=== PATIENT | male | born 1945 | race Caucasian/White ===

== ENCOUNTER → 2017-06-03 | Outpatient (CLI) | payer MEDICARE, OTHER ==
[~2017-06-03] MED LIST: A & D OINT TUBE60 GM TP; ALLEGRA 180MG180 MG PO; ASPIRIN 81M81 MG/TA2 PO; BRILINTA90 MG PO; CLARITIN 1010 MG/TAB PO; COLACE 100100 MG/CAP PO; ENSURE PLUS 23237 ML PO; GLUCOPHAGE500 MG/TAB PO; MAG-OX 400400 MG/TAB PO; MIRALAX PA17 GM/Dose PO; NAMENDA 10MG TA10 MG PO; NORVASC 5MG5 MG/TAB PO; Norvasc PO; PRAVACHOL 20MG20 MG PO; PRAVACHOL10 MG PO; SEROQUEL 1100 MG/TAB PO; SINGULAIR 110 MG/TAB PO; SYNTHROID0.125 MG/T PO; TOPROL XL 25MG25 MG PO; VALIUM 5MG T5 MG/TAB PO; ZESTRIL 20MG TA20 MG PO; ZESTRIL40 MG PO; [UNRECOGNIZED DRUG - SUPPLY] TP
== END ==
LOC: COL.RAD 07:12
DX: Z13.6 Encounter for screening for cardiovascular disorders (principal); I71.4 Abdominal aortic aneurysm, without rupture

== ENCOUNTER → 2022-04-26 | Outpatient (RCR) | payer MEDICARE, OTHER ==
[~2022-04-26] MED LIST changes: +PRINIVIL10 MG PO; +SORIATANE25 M2 PO; +SYNTHROID0.1 MG/TAB PO
== END | disposition still patient (30) ==
LOC: WSST
DX: R48.9 Unspecified symbolic dysfunctions (principal); R41.3 Other amnesia; G93.1 Anoxic brain damage, not elsewhere classified

== ENCOUNTER → 2022-07-27 | Outpatient (RCR) | payer MEDICARE, OTHER | END | disposition home or self-care (01) | LOC: WSST | DX: R48.9 Unspecified symbolic dysfunctions (principal); R41.3 Other amnesia; G93.1 Anoxic brain damage, not elsewhere classified; Z86.74 Personal history of sudden cardiac arrest ==

== ENCOUNTER → 2022-08-24 | Outpatient (CLI) | payer MEDICARE, OTHER | LOC: COL.RAD 08-12 07:30 | DX: K76.0 Fatty (change of) liver, not elsewhere classified (principal) ==

== ENCOUNTER → 2022-08-24 | Outpatient (RCR) | payer MEDICARE, OTHER | END | disposition home or self-care (01) | LOC: WSST | DX: R48.9 Unspecified symbolic dysfunctions (principal); R41.3 Other amnesia ==

== ENCOUNTER 2022-09-21 13:30 | Outpatient (RCR) | payer MEDICARE, OTHER | END 2022-09-24 | disposition home or self-care (01) | LOC: WSST | DX: G93.1 Anoxic brain damage, not elsewhere classified (principal); R48.9 Unspecified symbolic dysfunctions; R41.3 Other amnesia ==

== ENCOUNTER 2022-10-19 13:30 | Outpatient (RCR) | payer MEDICARE, OTHER | END 2022-10-24 | disposition home or self-care (01) | LOC: WSST | DX: G93.1 Anoxic brain damage, not elsewhere classified (principal) ==

== ENCOUNTER 2022-11-23 13:30 | Outpatient (RCR) | payer MEDICARE, OTHER | END 2022-11-24 | disposition home or self-care (01) | LOC: WSST | DX: R48.9 Unspecified symbolic dysfunctions (principal); R41.3 Other amnesia ==

== ENCOUNTER 2023-10-24 14:35 | Inpatient (IN) | payer MEDICARE, OTHER ==
[~2023-10-24] VITALS: Ht 162.6 cm; Wt 87.1 kg
[2023-10-24] VITALS (250 sets, daily range): BP systolic 121–131; BP diastolic 69–79; PULSE 89–113; TEMP 98.6; O2SAT 86–98
[~2023-10-24 14:35] MED LIST changes: +ALBUTEROL0.83 MG/ML IH; +ALDACTONE 25MG25 M1 PO; +COZAAR 25MG25 MG/TAB PO; +LASIX 40MG TABL40 MG PO; +OXYGEN NASAL.CANN; +PLAVIX 75MG TAB75 MG PO; +PRESERVISION A1 EAC3 PO; +SYNTHROID0.112 MG/T PO
[2023-10-24] MEDS ORDERED: NS 1,000 ML IV ONE (15:30)
[2023-10-24] MEDS ORDERED: dilTIAZem 25 MG/5 ML VIAL IV ONE (15:30)
[2023-10-24 15:33] LABS: BASO % 0.2 % (0.0-2.0); EOS # 0.2 K/mm3 (0.0-0.7); EOS % 1.3 % (0.0-4.0); GRAN # 11.6 K/mm3 (1.4-6.5); GRAN % 81.9 % (42.2-75.2); HEMATOCRIT 38.9 % (42.0-52.0); HEMOGLOBIN 12.5 g/dl (13.5-18.0); LYMPH % 7.1 % (20.0-51.0); MEAN CELL VOLUME 91 fl (80.0-100.0); MEAN CORPUSCULAR HEMOGLOBIN 29 pg (27-31); MEAN CORPUSCULAR HGB CONC 32 g/dl (33.0-37.0); MEAN PLATELET VOLUME 11.3 fl (7.4-10.4); MONO # 1.2 K/mm3 (0.1-0.6); MONO % 8.6 % (1.7-9.3); PLATELET COUNT 206 K/mm3 (130-400); RED BLOOD COUNT 4.27 M/mm3 (4.20-5.60); REDCELL DISTRIBUTION WIDTH-CV 15.4 % (11.5-14.5)
[2023-10-24 15:44] LABS: INR 1.3 (0.8-3.0); PROTHROMBIN TIME 14.4 SECONDS (9.7-12.8)
[2023-10-24 15:47] LABS: PARTIAL THROMBOPLASTIN TIME 30.2 SECONDS (26.0-37.0)
[2023-10-24 15:58] LABS: ALBUMIN 2.7 g/dL (3.4-4.8); BILIRUBIN,TOTAL 0.7 mg/dL (0.2-1.2); CALCIUM 8.9 mg/dL (8.4-10.2); CREATININE, serum 0.78 mg/dL (0.72-1.25); MAGNESIUM 2.2 mg/dL (1.6-2.6); POTASSIUM 4.1 mEq/L (3.5-4.5); TOTAL PROTEIN 7.6 g/dl (6.2-8.1)
[2023-10-24] MEDS ORDERED: Digoxin 0.25 MG/ML 2 ML VIAL IV ONE (16:00)
[2023-10-24 16:06] LABS: TROPONIN-I 0.028 ng/mL (0.00-0.033)
[2023-10-24] MEDS ORDERED: Heparin 5,000 UNITS/ML 1 ML VIAL IV PRN (16:30)
[2023-10-24] MEDS ORDERED: Heparin/D5W 250 ML IV SCH (16:30)
[2023-10-24] MEDS ORDERED: Heparin 5,000 UNITS/ML 1 ML VIAL IV ONE (16:30)
[2023-10-24] MEDS ORDERED: MAG-OX 400400 MG/TAB PO (16:51)
[2023-10-24] MEDS ORDERED: *Potassium Replacement Protocol MC SCH (19:15)
--- NOTE | 2023-10-24 20:00 | NUR ---
AT BEDSIDE. PT IS ALERT, BUT FORGETFUL. PER THIS IS HIS BASELINE. PT ARRIVED PRIOR TO 1900. NO SIGN OF DISTRESS AT THIS TIME.
--- NOTE | 2023-10-24 20:53 | NUR ---
PT ARRIVED ON DAYSHIFT AT THE END OF THE SHIFT. ADDMISSION COMPLETED ON ASSOCIATE BUYER. PT IS STABLE. NO SIGN OF DISTRESS AT THIS TIME. AT BEDSIDE.
--- NOTE | 2023-10-24 22:00 | NUR ---
PT HAS URINARY FREQUENCY AND URGENCY. WILL SEND UA. PT'S HAS GONE HOME. PT IS IMPULSIVE. BED ALARM IN USE. PT INSTRUCTED ON USE OF NURSE CALL.
[2023-10-24 22:21] LABS: HEMOGLOBIN 12.6 g/dl (13.5-18.0); MEAN CELL VOLUME 88 fl (80.0-100.0); MEAN CORPUSCULAR HEMOGLOBIN 29 pg (27-31); MEAN CORPUSCULAR HGB CONC 33 g/dl (33.0-37.0); MEAN PLATELET VOLUME 11.1 fl (7.4-10.4); PLATELET COUNT 196 K/mm3 (130-400); RED BLOOD COUNT 4.34 M/mm3 (4.20-5.60); REDCELL DISTRIBUTION WIDTH-CV 15.1 % (11.5-14.5)
[2023-10-24] MEDS ORDERED: Melatonin 3 MG TAB PO SCH (23:08)
[2023-10-25] VITALS (1238 sets, daily range): BP systolic 94–173; BP diastolic 58–102; PULSE 81–142; TEMP 98.4–98.6; O2SAT 81–99
[2023-10-25 05:27] LABS: BASO # 0.1 K/mm3 (0.0-0.2); BASO % 0.4 % (0.0-2.0); EOS # 0.2 K/mm3 (0.0-0.7); EOS % 1.6 % (0.0-4.0); GRAN # 11.2 K/mm3 (1.4-6.5); GRAN % 80.6 % (42.2-75.2); HEMATOCRIT 38.4 % (42.0-52.0); HEMOGLOBIN 12.6 g/dl (13.5-18.0); LYMPH # 1.2 K/mm3 (1.2-3.4); LYMPH % 8.9 % (20.0-51.0); MEAN CELL VOLUME 89 fl (80.0-100.0); MEAN CORPUSCULAR HEMOGLOBIN 29 pg (27-31); MEAN CORPUSCULAR HGB CONC 33 g/dl (33.0-37.0); MEAN PLATELET VOLUME 10.7 fl (7.4-10.4); MONO % 7.4 % (1.7-9.3); PLATELET COUNT 226 K/mm3 (130-400); RED BLOOD COUNT 4.34 M/mm3 (4.20-5.60); REDCELL DISTRIBUTION WIDTH-CV 14.9 % (11.5-14.5)
[2023-10-25 05:46] LABS: ALBUMIN 2.5 g/dL (3.4-4.8); CALCIUM 8.8 mg/dL (8.4-10.2); CREATININE, serum 0.71 mg/dL (0.72-1.25); MAGNESIUM 2.1 mg/dL (1.6-2.6); PHOSPHOROUS 3.2 mg/dL (2.3-4.7); POTASSIUM 3.9 mEq/L (3.5-4.5)
--- NOTE | 2023-10-25 06:36 | NUR ---
PT UP TO VOID EVERY 30 TO 60 MINUTES OVERNIGHT. PT IS UNSURE IF THIS IS HIS NORMAL VOIDING PATTERN. UA WAS SENT - RESULTS PENDING. PT NPO SINCE MIDNIGHT FOR OLMAN CARDIOVERSION. STABLE ON ROUNDS. NO SIGN OF DISTRESS AT THIS TIME. CONTINUE WITH PLAN OF CARE.
[2023-10-25 07:34] LABS: COLLECTION METHOD CLEAN CATCH
[2023-10-25 07:50] LABS: URINE APPEARANCE CLEAR (CLEAR/HAZY); URINE BLOOD NEGATIVE (NEGATIVE); URINE COLOR YELLOW (YELLOW); URINE GLUCOSE NEGATIVE (NEGATIVE); URINE KETONE NEGATIVE (NEGATIVE); URINE NITRATE NEGATIVE (NEGATIVE); URINE PROTEIN(semi-quant) NEGATIVE (NEGATIVE); URINE UROBILINOGEN 0.2 E.U/dL (0.2-1.0)
[2023-10-25] MEDS ORDERED: 1/2 NS 1,000 ML IV SCH (08:15)
[2023-10-25] MEDS ORDERED: NS 1,000 ML IV SCH (10:45)
--- NOTE | 2023-10-25 10:58 | NUR ---
Initial visit; Patient and his thanked Bacon Skin Lifter for stopping and stated that patient is doing well and waiting to be discharged. Bacon Skin Lifter wished hin well along with his who was a very positive, pleasant woman.
--- NOTE | 2023-10-25 11:31 | NUR ---
Head Bone Grinder met with patient and his , Latonia (ph#[phone]) to discuss discharge plan. Patient lives in [place] with his and sees Dr. Brown for primary care. Patient gets his medications at [facility] and has no issues affording them at this time. Patient does not drive and relies on others for transportation. Patient has a walker at home that he recently borrowed. SW discussed ordering one through insurance and patient would like to do this, however only wants one that would fold up. Patient has home oxygen from [facility]. Patient is normally independent with [facility], but just started Home Health services with [facility]. Patient and Latonia would like patient to return home with services if able. KRISTY spoke with Darryn at [facility] and faxed clinical updates. Discharge Plan; Home with [facility], needs FWW
[2023-10-25] MEDS ORDERED: Dextrose 50% Water 25 GM/50 ML SYRINGE IV PRN (11:45)
[2023-10-25] MEDS ORDERED: Dextrose (Glucose) 15 GM (4 x 3.75 GM) Chewable TABLET PACK PO PRN (11:45)
[2023-10-25] MEDS ORDERED: Glucagon 1 MG VIAL IM PRN (11:45)
[2023-10-25] MEDS ORDERED: Insulin Lispro (HumaLOG) SQ SCH (12:00)
--- NOTE | 2023-10-25 15:46 | NUR ---
OLMAN PERFROMED AT THIS TIME.
--- NOTE | 2023-10-25 15:50 | NUR ---
CARDIOVERSION PERFORMED WITH 200 J USED. AMIODARONE 300MG ADIMINISTERED AFTERWARDS. PATIENT WAS IN AND OUT OF AFIB/SR. AMIODARONE GTT STARTED.
[2023-10-25] MEDS ORDERED: Amiodarone 450 MG in D5W Excel 250 ML IV SCH ×4 (16:17→23:26)
[2023-10-25] MEDS ORDERED: Hydrocortisone 1% Cream 30 GM TUBE TP PRN (16:30)
--- NOTE | 2023-10-25 17:41 | NUR ---
PATIENT BEGAN EXPERIENCING SHORTNESS OF BREATH WITH SPO2 DROPPING TO LOW 80% RN LISTENED TO PATIENT AND IT APPEARS THAT THE PATIENTS RIGHT LOWER LOBE SEEMS DIMNISHED. RT CALLED TO BEDSIDE - RT FINDINGS ARE DIMINISHED AND CRACKLES IN RIGHT LOWER LOBE. HOSPITALIST CALLED MULTIPLE TIMES BUT RN UNABLE TO GET AHOLD OF HIM. YANICK CALLED AND IS PUTTING IN A CHEST XRAY.
--- NOTE | 2023-10-25 17:55 | NUR ---
PATIENT PLACED ON BIPAP AT 60% AT THIS TIME. PATIENT TOLERATING BIPAP. SON AND AT BEDSIDE.
[2023-10-25 18:16] LABS: ARTERIAL BLD GAS O2 SATURATION 96.8 % (92-100); ARTERIAL BLD GAS TCO2 CT 27.2; ARTERIAL BLOOD GAS BASE EXCESS 0.4 (-2-2); ARTERIAL BLOOD GAS HCO3 25.8 meq/L (22-26); ARTERIAL BLOOD GAS PCO2 44.5 mmHg (35-45); ARTERIAL BLOOD GAS PO2 94.4 mmHg (80-100); ARTERIAL BLOOD GAS pH 7.38 (7.35-7.45)
--- NOTE | 2023-10-25 19:04 | NUR ---
PATIENT EXPERIENCING RESPIRATORY DISTRESS AT THIS TIME. RN AND RT AT BEDSIDE.
--- NOTE | 2023-10-25 20:00 | NUR ---
PT SITTING AT BEDSIDE WITH . PT IS ON 4L OXYGEN PER NC. PT IS EATING. STABLE AT THIS TIME. NO SIGN OF DISTRESS. CONTINUE PLAN OF CARE.
--- NOTE | 2023-10-25 20:10 | NUR ---
PT TAKEN OFF BIPAP TO EAT DINNER AT 1955. PLACED ON 4L NC SATTING 92%. RN AWARE.
--- NOTE | 2023-10-25 23:13 | NUR ---
PT PLACED ON BIPAP AFTER CARDIOVERSON. PT IN AND OUT OF AFIB. CARLOS PLACED FOR URINE RETENTION. AT BEDSIDE. PT CAN COME OFF BIPAP AT 1930 TO EAT. PT WAS PLACED ON ACCU CHECKS AC/HS. LOW SLIDING SCALE.
--- NOTE | 2023-10-25 23:23 | NUR ---
PT STABLE ON ROUNDS. NO SIGN OF DISTRESS AT THIS TIME.
[2023-10-25] MEDS ORDERED: QUEtiapine 25 MG TAB PO ONE (23:45)
[2023-10-26] VITALS (305 sets, daily range): BP systolic 121–138; BP diastolic 68–80; PULSE 76–92; TEMP 97.4–99.1; O2SAT 86–99
--- NOTE | 2023-10-26 | NUR ---
PT CONFUSED. TRYING TO GET OUT OF BED. PT PULLED OFF BIPAP. PT STATING HE IS LEAVING. THIS NURSE TRIED TO REORIENT THE PATIENT. DR GORDON CALLED. SEROQUEL ORDER REQUESTED. CONTINUE PLAN OF CARE.
--- NOTE | 2023-10-26 05:04 | NUR ---
PT RESTED QUIETLY AFTER SEROQUEL WAS GIVEN. BI-PAP WORN OVER NIGHT. REMAINS ON HEPARIN, AMIODARONE & IVF. NO SIGN OF DISTRESS AT THIS TIME. CONTINUE PLAN OF CARE.
[2023-10-26 06:53] LABS: BASO # 0.1 K/mm3 (0.0-0.2); BASO % 0.3 % (0.0-2.0); EOS # 0.2 K/mm3 (0.0-0.7); EOS % 1.1 % (0.0-4.0); GRAN # 14.1 K/mm3 (1.4-6.5); GRAN % 80.2 % (42.2-75.2); HEMATOCRIT 37.4 % (42.0-52.0); HEMOGLOBIN 12.1 g/dl (13.5-18.0); LYMPH # 1.6 K/mm3 (1.2-3.4); MEAN CELL VOLUME 90 fl (80.0-100.0); MEAN CORPUSCULAR HEMOGLOBIN 29 pg (27-31); MEAN CORPUSCULAR HGB CONC 32 g/dl (33.0-37.0); MEAN PLATELET VOLUME 10.5 fl (7.4-10.4); MONO # 1.5 K/mm3 (0.1-0.6); MONO % 8.2 % (1.7-9.3); PLATELET COUNT 266 K/mm3 (130-400); RED BLOOD COUNT 4.18 M/mm3 (4.20-5.60); REDCELL DISTRIBUTION WIDTH-CV 15.2 % (11.5-14.5)
--- NOTE | 2023-10-26 07:00 | NUR ---
REPORT RECEIVED FROM LOGAN IBANEZ. PT ON BIPAP, TOLERATING WELL. AMIO AND HEPARIN INFUSING ORDERED TO PERIPHERAL IV'S. CARLOS CATHETER IN PLACE TO DEPENDENT DRAINAGE. PT IS ALERT BUT CONFUSED AT TIMES, BED ALARM ON FOR PT SAFETY AND CALL LIGHT IN REACH.
[2023-10-26 07:18] LABS: ALBUMIN 2.4 g/dL (3.4-4.8); CALCIUM 8.8 mg/dL (8.4-10.2); CREATININE, serum 0.74 mg/dL (0.72-1.25); PHOSPHOROUS 3.4 mg/dL (2.3-4.7); POTASSIUM 3.9 mEq/L (3.5-4.5)
--- NOTE | 2023-10-26 10:38 | NUR ---
RECEIVED CALL FROM SHEFALI MAYERS TO NOTIFY NURSE THAT PT'S UA COLLECTED ON 10/24/23 APPEARED TO BE POSITIVE FOR UTI, RECOMMENDED CULTURE BE DONE AND ANTIBIOTICS STARTED. PER LAB, INITIAL SPECIMEN COULD NOT BE RAN FOR CULTURE IT WAS CONTAMINATED. DR CARREON NOTIFIED OF SHEFALI RECOMMENDATION WELL PT'S ELEVATED WBC, DECLINES TO START ANTIBIOTICS AT THIS TIME. THIS NURSE REQUESTED HE ORDER A NEW UA AND CULTURE, ORDERS PLACED AND SAMPLE COLLECTED.
[2023-10-26] MEDS ORDERED: cefTRIAXone 1 G in Water For Injection,Sterile 10 ML IV SCH (11:15)
[2023-10-26] MEDS ORDERED: Furosemide 40 MG/4 ML VIAL IV ONE (11:30)
[2023-10-26 12:18] LABS: COLLECTION METHOD CATHETER
[2023-10-26 13:08] LABS: PH 5.5 (5.0-8.5); URINE APPEARANCE TURBID (CLEAR/HAZY); URINE BLOOD 3+ (NEGATIVE); URINE COLOR Dark Yellow (YELLOW); URINE GLUCOSE NEGATIVE (NEGATIVE); URINE KETONE NEGATIVE (NEGATIVE); URINE NITRATE NEGATIVE (NEGATIVE); URINE PROTEIN(semi-quant) 1+ (NEGATIVE); URINE UROBILINOGEN 0.2 E.U/dL (0.2-1.0)
--- NOTE | 2023-10-26 19:00 | NUR ---
FAMILY AT BEDSIDE. WOULD LIKE SEROQUEL GIVEN AGAIN TONIGHT. PT ON . PLAN FOR BIPAP OVER NIGHT. LACTIC ELEVATED - UTI.
--- NOTE | 2023-10-26 20:00 | NUR ---
FAMILY REPORTS PT RESTLESS THRU OUT THE DAY. PT IS ON OXYGEN PER NC AT THIS TIME. PLAN IS FOR BIPAP OVERNIGHT. STABLE AT THIS TIME. CONTINUE PLAN OF CARE
[2023-10-26] MEDS ORDERED: QUEtiapine 25 MG TAB PO PRN (20:15)
[2023-10-27] VITALS (46 sets, daily range): BP systolic 109–156; BP diastolic 53–88; PULSE 68–87; TEMP 97.9–98.5; O2SAT 84–100
[2023-10-27 04:24] LABS: HEMOGLOBIN 12.3 g/dl (13.5-18.0); MEAN CELL VOLUME 87 fl (80.0-100.0); MEAN CORPUSCULAR HEMOGLOBIN 29 pg (27-31); MEAN CORPUSCULAR HGB CONC 34 g/dl (33.0-37.0); MEAN PLATELET VOLUME 10.4 fl (7.4-10.4); PLATELET COUNT 228 K/mm3 (130-400); RED BLOOD COUNT 4.21 M/mm3 (4.20-5.60); REDCELL DISTRIBUTION WIDTH-CV 15.2 % (11.5-14.5)
[2023-10-27 04:40] LABS: ALBUMIN 2.3 g/dL (3.4-4.8); CALCIUM 8.7 mg/dL (8.4-10.2); CREATININE, serum 0.79 mg/dL (0.72-1.25); PHOSPHOROUS 2.9 mg/dL (2.3-4.7); POTASSIUM 3.8 mEq/L (3.5-4.5)
[2023-10-27 04:50] LABS: HEMATOCRIT 36.7 % (42.0-52.0)
[2023-10-27 05:18] LABS: BAND 3 % (0-10); EOSINOPHIL 1 % (0-4); LYMPHOCYTE 14 % (20.0-51.0); NEUTROPHILS 79 % (42.0-75.2); PLATELET ESTIMATE NORMAL (NORMAL)
--- NOTE | 2023-10-27 08:00 | NUR ---
Patient awake and resting in bed; BIPAP removed and nasal cannula placed. Patient denies any shortness of air or pain. Is pleasant and cooperative with nurse during assessment. Call light left within reach.
[2023-10-27] MEDS ORDERED: Potassium Bicarbonate/Citrate 20 MEQ Effervescent TAB PO ONE (09:30)
[2023-10-27] MEDS ORDERED: Clopidogrel 75 MG TAB PO SCH (10:23)
[2023-10-27] MEDS ORDERED: Polyethylene Glycol 3350 17 GM PDS PO SCH (10:30)
--- NOTE | 2023-10-27 10:40 | NUR ---
Report from Cherri Radford.Pt observed alert,orientated,watching tv im bed.Family at bedside.
[2023-10-27] MEDS ORDERED: Amiodarone 200 MG TAB PO SCH (11:30)
[2023-10-27] MEDS ORDERED: Apixaban 5 MG TABLET PO SCH (13:07)
--- NOTE | 2023-10-27 13:22 | NUR ---
manager workers compensation attended clinical rounds and then met with patient, spouse, and their daughter to discuss discharge planning. Patient was utilizing a friend's walker at home and will need one upon discharge. Worker obtained signed prescription and sent it, including clinicals to [facility] per spouse's request. Worker collaborated with Saumya Burroughs social insurance specialist, as patient is being transferred to the medical unit today. Therapy will continue to work with patient and provide discharge guidance.
--- NOTE | 2023-10-27 13:30 | NUR ---
Javier removed as ordered.Heparin drip stopped as ordered.Pt sitting in chair, at bedside.Chair alarm in place.Will continue to monitor.
--- NOTE | 2023-10-27 15:58 | NUR ---
Patient to room 355,hadnoff to primary nurse assuming care.Report called by LOGAN Radford.
--- NOTE | 2023-10-27 16:35 | NUR ---
Pt laying in bed. and daughter bedside. Oriented Pt to room. Pt is Alert, oriented to self - baseline for Pt. VSS. S1S2 on tele. Clear lung sounds, diminished in bases. ABD is rounded, soft, non-tender with audible bowel sounds. Palpable pulses in all extremities with normal strength. Pt is a x1 assist with walker. IV in R wrist is patent, no issues. Discontinued IV in L wrist due to leaking. Pt has ecchymosis on bilateral upper extremities. +1 edema in BLE. Pt is on 4L via NC. Oriented Pt and family to room. No further needs at this time. Call light in reach and bed alarm on.
--- NOTE | 2023-10-27 19:25 | NUR ---
PATIENT SITTING UP IN BEDSIDE RECLINER WITH AT BEDSIDE WITH TV ON WITH NO ACUTE DISTRESS NOTED. INT TO RIGHT WRIST INTACT WITH NO COMPLICATIONS NOTED. TELEMETRY INTACT. CHAIR ALARM ON. PATIENT DENIES ANY NEEDS AT THIS TIME. PATIENT CARE ASSUMED FROM YASSINE. CALL LIGHT WITHIN REACH AND CHAIR ALARM ON.
[2023-10-27] MEDS ORDERED: Nitrofurantoin (Mono/Macro) 100 MG CAP PO SCH (21:00)
[2023-10-27] MEDS ORDERED: Pravastatin 20 MG TAB PO SCH (21:00)
--- NOTE | 2023-10-27 21:15 | NUR ---
PATIENT RESTING IN BEDSIDE RECLINER WITH TV ON WITH NO FAMILY PRESENT WITH NO ACUTE DISTRESS NOTED. PATIENT ON 4 LITERS OF OXYGEN VIA NC. INT TO RIGHT WRIST INTACT WITH NO COMPLICATIONS NOTED. TELEMETRY INTACT. ASSESSMENT AND MEDICATION ADMINISTRATION COMPLETED AT THIS TIME. PATIENT TOLERATD WELL. PATIENT REQUESTED TO GO TO BATHROOM. PATIENT ASSISTED TO BATHROOM AND VOIDED WITH A BOWEL MOVEMENT. PATIENT DID OWN JW CARE. PATIENT ASSISTED TO SINK TO WASH HANDS AND AMBULATED TO BED WITH STAND BY ASSIST. PATIENT ASSISTED TO REPOSITION FOR COMFORT. ALL NEEDS MET. BED IN LOW POSITION WITH WHEELS LOCKED WITH RAILS UP X3 AND CALL LIGHT WITHIN REACH. BED ALARM ON.
[2023-10-28] VITALS (9 sets, daily range): BP systolic 109–147; BP diastolic 71–82; PULSE 68–86; TEMP 97.8–98.3
[2023-10-28 07:45] LABS: HEMATOCRIT 38.7 % (42.0-52.0); HEMOGLOBIN 12.3 g/dl (13.5-18.0); MEAN CELL VOLUME 91 fl (80.0-100.0); MEAN CORPUSCULAR HEMOGLOBIN 29 pg (27-31); MEAN CORPUSCULAR HGB CONC 32 g/dl (33.0-37.0); MEAN PLATELET VOLUME 11.3 fl (7.4-10.4); PLATELET COUNT 242 K/mm3 (130-400); RED BLOOD COUNT 4.25 M/mm3 (4.20-5.60); REDCELL DISTRIBUTION WIDTH-CV 15.4 % (11.5-14.5)
[2023-10-28 08:14] LABS: ALBUMIN 2.4 g/dL (3.4-4.8); CREATININE, serum 0.78 mg/dL (0.72-1.25); MAGNESIUM 2.3 mg/dL (1.6-2.6); PHOSPHOROUS 3.6 mg/dL (2.3-4.7); POTASSIUM 4.3 mEq/L (3.5-4.5)
--- NOTE | 2023-10-28 08:23 | NUR ---
critical lab value notofied to
[2023-10-28 08:37] LABS: BAND 2 % (0-10); EOSINOPHIL 1 % (0-4); LYMPHOCYTE 7 % (20.0-51.0); NEUTROPHILS 80 % (42.0-75.2)
[2023-10-28 08:38] LABS: ANISOCYTOSIS 1+; PLATELET ESTIMATE NORMAL (NORMAL)
--- NOTE | 2023-10-28 09:15 | NUR ---
patient alert and oriented to self and place. patient very talkitative in good mood. patient family at bedside. shift assessment completed. call light within reach. bed at lowest position.
--- NOTE | 2023-10-28 10:45 | NUR ---
patient had a looprecorder procedure. site looks good, clear intact. gauze dressing clean no blood.
[2023-10-28] MEDS ORDERED: Doxycycline Monohydrate 100 MG CAP PO SCH (11:00)
[2023-10-28] MEDS ORDERED: Iohexol 300 - 100 ML VIAL IV ONE (12:11)
[2023-10-28] MEDS ORDERED: NS 100 ML IV SCH (12:12)
[2023-10-28] MEDS ORDERED: Furosemide 40 MG TAB PO ONE (14:30)
--- NOTE | 2023-10-28 15:33 | NUR ---
Lead Burner Supervisor met with patient and his , Latonia to review discharge plan. SW reviewed PT recommendation for HH vs SNF. Patient prefers to return home with continued services with [facility]. SW presented and reviewed IM form with patient who verbalized understanding and provided signature. SW placed form in chart then provided copy to patient. KRISTY contacted Britton at [facility] and faxed updates. KRISTY also confirmed with [facility] that patient is set up with them for home oxygen. Discharge Plan; Home with [facility], FWW ordered through [facility], needs to be delivered at time of discharge
[2023-10-29] VITALS (13 sets, daily range): BP systolic 112–144; BP diastolic 62–77; PULSE 57–73; TEMP 97.4–98.3
[2023-10-29 06:53] LABS: HEMATOCRIT 38.3 % (42.0-52.0); HEMOGLOBIN 12.5 g/dl (13.5-18.0); MEAN CELL VOLUME 89 fl (80.0-100.0); MEAN CORPUSCULAR HEMOGLOBIN 29 pg (27-31); MEAN CORPUSCULAR HGB CONC 33 g/dl (33.0-37.0); MEAN PLATELET VOLUME 10.7 fl (7.4-10.4); PLATELET COUNT 316 K/mm3 (130-400); RED BLOOD COUNT 4.31 M/mm3 (4.20-5.60); REDCELL DISTRIBUTION WIDTH-CV 15.4 % (11.5-14.5)
[2023-10-29 07:15] LABS: ALBUMIN 2.6 g/dL (3.4-4.8); CALCIUM 9.1 mg/dL (8.4-10.2); CREATININE, serum 0.86 mg/dL (0.72-1.25); MAGNESIUM 2.1 mg/dL (1.6-2.6); POTASSIUM 4.1 mEq/L (3.5-4.5)
[2023-10-29 08:51] LABS: EOSINOPHIL 2 % (0-4); LYMPHOCYTE 4 % (20.0-51.0); METAMYELOCYTE 3 % (0-0); NEUTROPHILS 85 % (42.0-75.2); PLATELET ESTIMATE NORMAL (NORMAL)
[2023-10-29 08:52] LABS: ANISOCYTOSIS 1+
--- NOTE | 2023-10-29 09:00 | NUR ---
patient alert and oriented to self and place. patient denies pain at this time. patient voiding. patient chest incision dry/clean/intact gauze dressing clean no drainage. patient on 4L 02/NC. at bedside. call light within reach. bed at lowest position. bed alarm on.
[2023-10-29] MEDS ORDERED: Furosemide 40 MG TAB PO SCH (11:46)
[2023-10-29] MEDS ORDERED: Amiodarone 200 MG TAB PO SCH (21:00)
[2023-10-30] VITALS (11 sets, daily range): BP systolic 108–140; BP diastolic 53–73; PULSE 66–72; TEMP 98–99
--- NOTE | 2023-10-30 22:00 | NUR ---
Patient resting in bed. Denies any pain or needs at this time. Assessment complete. IV in right wrist flushes easily with no complications. Call light and personal items in reach. Bed in low position and bed in low position.
[2023-10-31] VITALS (7 sets, daily range): BP systolic 117–136; BP diastolic 61–75; PULSE 65–69; TEMP 97.4–98.1
--- NOTE | 2023-10-31 06:05 | NUR ---
Patient resting in bed. Denies any pain at this time. Needs met. No changes over night. Call light and personal items in reach. Bed in low position and bed alarm on.
[2023-10-31 08:39] LABS: CALCIUM 8.8 mg/dL (8.4-10.2); CREATININE, serum 0.85 mg/dL (0.72-1.25); MAGNESIUM 2.1 mg/dL (1.6-2.6); POTASSIUM 4.1 mEq/L (3.5-4.5)
[2023-10-31 08:45] LABS: HEMATOCRIT 39.5 % (42.0-52.0); HEMOGLOBIN 12.6 g/dl (13.5-18.0); MEAN CELL VOLUME 90 fl (80.0-100.0); MEAN CORPUSCULAR HEMOGLOBIN 29 pg (27-31); MEAN CORPUSCULAR HGB CONC 32 g/dl (33.0-37.0); MEAN PLATELET VOLUME 10.7 fl (7.4-10.4); PLATELET COUNT 331 K/mm3 (130-400); RED BLOOD COUNT 4.37 M/mm3 (4.20-5.60); REDCELL DISTRIBUTION WIDTH-CV 15.7 % (11.5-14.5)
[2023-10-31] MEDS ORDERED: ELIQUIS 5MG PO (09:16)
[2023-10-31] MEDS ORDERED: MACROBID 1100 MG/CAP PO (09:20)
[2023-10-31] MEDS ORDERED: PACERONE400 MG PO (09:40)
--- NOTE | 2023-10-31 09:40 | NUR ---
pt sitting up in recliner waiting for breakfast, pt has occasional confusion and needs redirection. vss and tele in place. pt on 2L nasal cannula. +1 edema to BLE. INT to right wrist patent. pt gait steady w walker. fall precautions in place. pt denies needs at this time. call light in reach.
[2023-10-31 10:08] LABS: BAND 2 % (0-10); EOSINOPHIL 4 % (0-4); LYMPHOCYTE 13 % (20.0-51.0); METAMYELOCYTE 3 % (0-0); NEUTROPHILS 69 % (42.0-75.2); PLATELET ESTIMATE NORMAL (NORMAL)
[2023-10-31] MEDS ORDERED: LASIX 40MG TABL40 MG PO (11:38)
--- NOTE | 2023-10-31 12:15 | NUR ---
discharge instructions given to pt and , all questions answered. pt escorted to personal vehicle by wheelchair.
--- NOTE | 2023-10-31 13:05 | NUR ---
Marriage And Family Teacher reviewed chart, patient discharged to home this morning. SW called and spoke with staff at [facility] to alert them that patient has left hospital. They will deliver FWW to patient's home today.
--- NOTE | 2023-10-31 15:57 | NUR ---
Discharge orders and summary faxed to [facility]. Updated order for walker sent secure email to [facility].
== END 2023-10-31 12:15 | disposition home health service (06) | DRG 260 ==
LOC: COL.ER 14:35 → ICU 17:48 → MEDICAL 10-27 15:45
PROVIDERS: Family Medicine; Internal Medicine; ADMIT Internal Medicine
PROC: 5A2204Z Restoration of Cardiac Rhythm, Single (ICD-10-PCS; 2023-10-25)
PROC: 5A09457 Assistance with Respiratory Ventilation, 24-96 Consecutive Hours, Continuous Positive Airway Pressure (ICD-10-PCS; 2023-10-25)
PROC: 0JH632Z Insertion of Monitoring Device into Chest Subcutaneous Tissue and Fascia, Percutaneous Approach (ICD-10-PCS; principal; 2023-10-28)
DX: I48.92 Unspecified atrial flutter (principal); J96.21 Acute and chronic respiratory failure with hypoxia; N39.0 Urinary tract infection, site not specified; J90 Pleural effusion, not elsewhere classified; E78.5 Hyperlipidemia, unspecified; G47.33 Obstructive sleep apnea (adult) (pediatric); I10 Essential (primary) hypertension; E03.9 Hypothyroidism, unspecified; E11.9 Type 2 diabetes mellitus without complications; I25.10 Atherosclerotic heart disease of native coronary artery without angina pectoris; F32.A Depression, unspecified; I07.1 Rheumatic tricuspid insufficiency; I95.9 Hypotension, unspecified; I48.91 Unspecified atrial fibrillation; D72.829 Elevated white blood cell count, unspecified; K59.00 Constipation, unspecified; F03.90 Unspecified dementia, unspecified severity, without behavioral disturbance, psychotic disturbance, mood disturbance, and anxiety; B95.2 Enterococcus as the cause of diseases classified elsewhere; M19.90 Unspecified osteoarthritis, unspecified site; Z88.2 Allergy status to sulfonamides; Z95.5 Presence of coronary angioplasty implant and graft; Z88.0 Allergy status to penicillin; I25.2 Old myocardial infarction; Z86.74 Personal history of sudden cardiac arrest; Z79.84 Long term (current) use of oral hypoglycemic drugs; Z79.82 Long term (current) use of aspirin; Z99.81 Dependence on supplemental oxygen; Z79.02 Long term (current) use of antithrombotics/antiplatelets; Z79.899 Other long term (current) drug therapy; Z85.828 Personal history of other malignant neoplasm of skin; Z79.890 Hormone replacement therapy; Z87.891 Personal history of nicotine dependence
CPT/HCPCS: C1764; J0282; J0696; J1160; J1644; J1815; J1940; J2704; J7030; J7060; Q3014; Q9967

== ENCOUNTER 2024-01-05 06:53 | Day surgery (SDC) | payer MEDICARE, OTHER ==
[~2024-01-05] VITALS: Ht 162.6 cm; Wt 89.4 kg
[~2024-01-05 06:53] MED LIST changes: +ELIQUIS 5MG PO; +MACROBID 1100 MG/CAP PO; +PACERONE400 MG PO
[2024-01-05 07:27] VITALS: BP 144/89; PULSE 97; TEMP 98.4
[2024-01-05] MEDS ORDERED: NS Flush 10 ML SYRINGE PRN ICA (07:45)
[2024-01-05 07:57] LABS: HEMATOCRIT 39.6 % (42.0-52.0); HEMOGLOBIN 12.6 g/dl (13.5-18.0); MEAN CELL VOLUME 93 fl (80.0-100.0); MEAN CORPUSCULAR HEMOGLOBIN 30 pg (27-31); MEAN CORPUSCULAR HGB CONC 32 g/dl (33.0-37.0); MEAN PLATELET VOLUME 10.5 fl (7.4-10.4); PLATELET COUNT 258 K/mm3 (130-400); RED BLOOD COUNT 4.25 M/mm3 (4.20-5.60); REDCELL DISTRIBUTION WIDTH-CV 15.2 % (11.5-14.5)
[2024-01-05] MEDS ORDERED: LR 1,000 ML IV SCH (08:00)
[2024-01-05 08:04] LABS: PARTIAL THROMBOPLASTIN TIME 36.3 SECONDS (26.0-37.0)
[2024-01-05 08:05] LABS: INR 1.8 (0.8-3.0); PROTHROMBIN TIME 19.3 SECONDS (9.7-12.8)
[2024-01-05 08:17] LABS: CALCIUM 9.1 mg/dL (8.4-10.2); CREATININE, serum 0.81 mg/dL (0.72-1.25); MAGNESIUM 2.2 mg/dL (1.6-2.6); POTASSIUM 4.2 mEq/L (3.5-4.5)
[2024-01-05 08:38] LABS: THYROID STIMULATING HORMONE 3.412 uIU/mL (0.350-4.940)
[2024-01-05] MEDS ORDERED: Lidocaine PF 2% (20 MG/ML) 5 ML VIAL ONE (08:45)
[2024-01-05] MEDS ORDERED: NS Flush 10 ML SYRINGE BID ICA SCH (09:00)
[2024-01-05] MEDS ORDERED: Hydrocortisone 1% Cream 30 GM TUBE TP PRN (09:00)
[2024-01-05] MEDS ORDERED: PACERONE400 MG PO (09:15)
[2024-01-05 09:30] VITALS: BP 112/62; PULSE 76
[2024-01-05 09:45] VITALS: BP 132/73; PULSE 75
[2024-01-05 10:00] VITALS: BP 136/72; PULSE 74
[2024-01-05 10:15] VITALS: BP 136/75; PULSE 74
--- NOTE | 2024-01-05 10:37 | NUR ---
PT TOLERATED RECOVERY PERIOD WELL. VS REMAINED WITHIN NORMAL LIMITS. PT WAS ASSISTED TO MAIN LOBBY VIA WHEELCHAIR AND WAS ACCOMPANIED BY . PT VERBALIZED UNDERSTANDING OF DISCHARGE INSTRUCTIONS AND REPORTED 0/10 PAIN AT TIME OF DISCHARGE. IV DISCONTINUE.
== END 2024-01-05 10:39 | disposition home or self-care (01) ==
LOC: COL.CAR 06:53
PROVIDERS: Internal Medicine Cardiovascular Disease
DX: I48.91 Unspecified atrial fibrillation (principal); I48.92 Unspecified atrial flutter; I25.2 Old myocardial infarction; E78.5 Hyperlipidemia, unspecified; I25.10 Atherosclerotic heart disease of native coronary artery without angina pectoris; I10 Essential (primary) hypertension; E66.9 Obesity, unspecified; Z68.31 Body mass index [BMI] 31.0-31.9, adult; Z79.01 Long term (current) use of anticoagulants; Z79.02 Long term (current) use of antithrombotics/antiplatelets; Z87.891 Personal history of nicotine dependence; Z95.5 Presence of coronary angioplasty implant and graft; Z86.74 Personal history of sudden cardiac arrest
CPT/HCPCS: J2704; J7120